=== PATIENT | male | born 1970 ===

== ENCOUNTER 2016-12-12 23:47 | Inpatient (IN) | payer MEDICAID ==
--- NOTE | 2016-12-13 02:08 | C.PDOC ---
History Of Present Illness 46 year old male with prior Hx of depression presents to the ED with suicidal ideation. Patient states this occurred about 5 days ago, since then he felt like being isolated and in the dark, has thought many time about suicide. Had tried before with taking pills, no clear explanation has to what is causing this depression. Patient has a Hx of diabetes as well and is not taking his medication due to his depression. He states no other medical issue at this time. Time Seen by Provider: 12/13/16 02:06 Chief Complaint (Nursing): Psychiatric Evaluation History Per: Patient History/Exam Limitations: no limitations Onset/Duration Of Symptoms: Days Current Symptoms Are (Timing): Still Present Suicide/Self Injury Attempted (Context): Ingestion Modifying Factor(s): None Associated Symptoms: Depression, Suicidal Thoughts, Suicidal Plan Involuntary Hold By: None Recent travel outside of the [place]: No Additional History Per: Patient Past Medical History Reviewed: Historical Data, Nursing Documentation, Vital Signs Vital Signs: Last Vital Signs Temp 97.4 F L 12/13/16 05:45 Pulse 84 12/13/16 07:16 Resp 20 12/13/16 07:16 BP 110/72 12/13/16 07:16 Pulse Ox 97 12/13/16 07:16 - Medical History PMH: No Chronic Diseases Surgical History: No Surg Hx Family History: States: Unknown Family Hx - Social History Hx Alcohol Use: No Hx Substance Use: No - Immunization History Hx Tetanus Toxoid Vaccination: No Hx Influenza Vaccination: Yes (2017) Hx Pneumococcal Vaccination: No Review Of Systems Constitutional: Negative for: Fever, Chills Cardiovascular: Negative for: Chest Pain Respiratory: Negative for: Cough Gastrointestinal: Negative for: Nausea, Vomiting, Abdominal Pain Neurological: Negative for: Weakness, Numbness Physical Exam - Physical Exam Appears: Non-toxic, Other (Depressed) Skin: Normal Color, Warm, Dry Head: Atraumatic, Normacephalic Oral Mucosa: Moist Neck: Normal, Supple Chest: Symmetrical Cardiovascular: Rhythm Regular, No Friction Rub, No Murmur Respiratory: Normal Breath Sounds, No Accessory Muscle Use, No Rales, No Rhonchi , No Wheezing Gastrointestinal/Abdominal: Soft, No Tenderness, No Guarding, No Rebound Extremity: Normal ROM, No Pedal Edema, No Calf Tenderness, No Deformity Pulses: Left Dorsalis Pedis: Normal, Right Dorsalis Pedis: Normal Neurological/Psych: Oriented x3, Normal Speech, Normal Cognition ED Course And Treatment - Laboratory Results Result Diagrams: 12/13/16 02:02 12/13/16 02:02 O2 Sat by Pulse Oximetry: 98 (On RA) Pulse Ox Interpretation: Normal Medical Decision Making Medical Decision Making: Impression : 46 y/o male presents with suicidal ideation. Patient was medically cleared and for crisis to evaluate. Disposition - Disposition Disposition: HOSPITALIZED Disposition Time: 05:20 Condition: FAIR - Clinical Impression Clinical Impression: Depression, Suicidal ideations - Scribe Statement The provider has reviewed the documentation as recorded by the Scribe Jeb Vale All medical record entries made by the Scribe were at my direction and personally dictated by me. I have reviewed the chart and agree that the record accurately reflects my personal performance of the history, physical exam, medical decision making, and the department course for this patient. I have also personally directed, reviewed, and agree with the discharge instructions and disposition.
[2016-12-13 02:12] LABS: CHLORIDE 97 mmol/L (98-107)
[2016-12-13 02:13] LABS: POTASSIUM 3.6 mmol/L (3.6-5.2); SODIUM 138 mmol/L (132-148)
[2016-12-13 02:15] LABS: GFR AFRICAN-AMERICAN > 60
[2016-12-13 02:16] LABS: ALB/GLOB RATIO 1.1 (1.0-2.1); ALKALINE PHOSPHATASE 66 U/L (38-126); ALT/SGPT 71 U/L (21-72); AST/SGOT 31 U/L (17-59); BLOOD UREA NITROGEN 12 mg/dL (9-20); CALCIUM 9.5 mg/dl (8.6-10.4); CARBON DIOXIDE 26 mmol/L (22-30); GLUCOSE,RANDOM 107 mg/dL (75-110); TOTAL PROTEIN 9.6 g/dL (6.3-8.3)
[2016-12-13 02:19] LABS: BASO % 0.5 % (0.0-2.0); EOS # 0.1 K/uL (0.0-0.7); EOS % 1.1 % (0.0-4.0); HEMATOCRIT 45.4 % (35.0-51.0); LYMPH # 3.3 K/uL (1.0-4.3); LYMPH % 35.8 % (20.0-40.0); MEAN CELL VOLUME 88.3 fL (80.0-94.0); MEAN CORPUSCULAR HEMOGLOBIN 31.2 pg (27.0-31.0); MEAN CORPUSCULAR HGB CONC 35.3 g/dL (33.0-37.0); MEAN PLATELET VOLUME 8.9 fL (7.2-11.7); MONO # 0.7 K/uL (0.0-0.8); MONO % 7.6 % (0.0-10.0); NRBC % 0.1 % (0.0-2.0); RED CELL DISTRIBUTION WIDTH 12.7 % (11.5-14.5); WHITE BLOOD COUNT 9.2 K/uL (4.8-10.8)
[2016-12-13 03:07] LABS: RBC URINE 2 /hpf (0-3); URINE BACTERIA RARE (<OCC); URINE BILIRUBIN NEGATIVE (NEGATIVE); URINE BLOOD NEGATIVE (NEGATIVE); URINE COLOR Yellow (YELLOW); URINE GLUCOSE (UA) NORMAL (Normal); URINE KETONE NEGATIVE (NEGATIVE); URINE LEUKOCYTE ESTERASE NEG Leu/uL (Negative); URINE PROTEIN 1+ mg/dL (NEGATIVE); WBC URINE 3 /hpf (0-5)
--- NOTE | 2016-12-13 07:54 | PCM.BM ---
<Becky Adam - Last Filed: 12/13/16 07:51> Treatment Plan Problems - Problems identified on initial assessmt dep Date Initiated: 12/13/16 Time Initiated: 07:52 Assessment reference: NA Status: Active Treatment assets and liabiliti Patient Assests: cooperative, insightful, ADL independent, good support system, good past tx response, cognitively intact Patient Liabilities: live alone - Milieu Protocol Maintain good personal hygiene: daily Encourage regular showers Conduct patient checks and document Observation sheet: Q15 minutes Maintain personal safety: every shift Educate patient to report safety concerns to staff, every shift Monitor environment for contraband/sharps Medication safety: Monitor for expected outcome, potential side effects: every shift, Assess barriers to learning: every shift, Assess readiness for medication education: every shift <Elsa Santo - Last Filed: 12/15/16 13:41> Family Contact Family involvement: Famliy/SO not involved - Goals for Treatment Patient goals for treatment: "I want to go to outpatient program." Discharge/Continuing Care - Education Needs Education Needs: Patient Medication, Patient Coping Skills - Discharge Discharge Criteria: Tolerates medication w/o severe side effects, Reduction of target symptoms Discharge to:: Home - Treatment Team Participation Discussed with Family/SO: No Was Patient/Family/SO present at Treatment Team Meeting: Yes <Gonzalez Vasquez - Last Filed: 12/15/16 17:46> - Diagnosis (1) Major depressive disorder, recurrent severe without psychotic features Status: Acute Interventions: Assess/adjust medications daily and/or as needed SEE patient on him individual basis 7x/week to assess status of hallucinations. Discuss risks, benefits, side effects and alternatives of medications. 12/15/16 17:46
--- NOTE | 2016-12-13 19:37 | PCM.PSYCH ---
Initial Psychiatric Evaluation - Initial Psychiatric Evaluation Type of Admission: Voluntary Legal Status: Capacity Chief Complaint (in patient's own words): I'm depressed and I have AVH Patient's Reaction to Hospitalization: feeling safe History of Present Illness and Precipitating Events: Time spend: 35 minutes This is a 46 year old male with the history of depression was presented and admitted for worsening of depression with psychotic features. He reported that he had depressed mood with anhedonia, insomnia, decrease in appetite, feeling worthless, helpless, hopeless and suicidal ideation to end his life. He stated that he had no intent or plan and no access to guns. He stated that he has had good social support from his friends. He denied any past suicide attempt. He reported that his functioning level had been decrease and unable to do his job. He reported that he is hearing male voices telling him to end his life and his life is worthless, but able to distract himself by listening to music and talking to himself. He denied Manic, anxiety symptoms. He denied paranoid delusions Current Medications: Active Medications Generic Name Dose Route Start Last Admin Trade Name Freq PRN Reason Stop Dose Admin Aripiprazole 5 mg 12/13/16 10:00 12/13/16 10:00 Abilify PO 5 mg DAILY HECTOR Administration Benztropine Mesylate 2 mg 12/13/16 05:12 Cogentin PO Q6 PRN Extra Pyramidal Symptoms Famotidine 20 mg 12/13/16 10:00 12/13/16 17:17 Pepcid PO 20 mg BID HECTOR Administration Glimepiride 1 mg 12/13/16 11:30 12/13/16 11:49 Amaryl PO 1 mg ACB HECTOR Administration Haloperidol 5 mg 12/13/16 05:12 Haldol PO Q8 PRN Moderate Agitation Haloperidol Lactate 5 mg 12/13/16 05:12 Haldol IM Q8 PRN Moderate Agitation Hydroxyzine HCl 25 mg 12/13/16 05:12 Atarax PO Q6 PRN Anxiety Ibuprofen 400 mg 12/13/16 05:12 Motrin Tab PO Q6 PRN Pain, moderate (4-7) Sitagliptin Phosphate 100 mg 12/13/16 11:30 12/13/16 11:49 Januvia PO 100 mg DAILY HECTOR Administration Past Psychiatric History - Past Psychiatric History Previous Treatment History: Inpatient Prior Psychiatric Treatment: multiple admission in [facility] during his teen age. He is not complian with tx At what hospital: at [facility] not compliant History of Abuse: denied History of ETOH/Drug Use: denied including smoking cigarettes as well as illicit drugs History of Family Illness: denied Pertinent Medical Hx (Current Medical&Sleep Prob, Allergies): Allergies Allergy/AdvReac Type Severity Reaction Status Date / Time No Known Allergies Allergy Verified 12/13/16 00:33 Glimepiride [Amaryl] 1 mg PO BID 12/13/16 Januvia mg PO DAILY 12/13/16 Review of Systems - Review of Systems Systems not reviewed;Unavailable: Acuity of Condition All systems: reviewed and no additional remarkable complaints except (Psych please see HPI) Mental Status Examination - Personal Presentation Personal Presentation: Looks older than stated age, Dressed appropriate to season - Affect Affect: Constricted, Depressed - Motor Activity Motor Activity: Calm, Psychomotor Retardation - Reliability in Providing Information Reliability in Providing Information: Fair - Speech Speech: Organized, Coherent - Mood Mood: Depressed, Anxious - Formal Thought Process Formal Thought Process: Delusions, Paranoia - Hallucinations/Delusions Hallucinations: Visual, Auditory - Obsessions/Compulsions Obsessions: No Compulsions: No - Cognitive Functions Orientation: Person, Place, Situation, Time Sensorium: Alert Attention/Concentration: Attentive Abstract Thinking: [place] Judgement: Intact, as evidence by: Good judgement, Intact, as evidence by: Insight regarding need for hospitalization Memory: Recent intact, as evidence by: Ability to recall events of the day - Risk Risk: Suicidal - Strength & Assets Inventory Strength & Assets Inventory: Intelligence, Education, Employment status, Employment history, Life experience, Cooperative - Limitations Limitations: Other DSM 5 DX - DSM 5 DSM 5 Diagnosis: Major depressive disorder, recurrent, with psychotic features DM - Recommended/Plan of Treatment Treatment Recommendations and Plan of Treatment: Start Abilify 5 mg po daily for depression Individual and group therapy Recommend to f/u with [facility] after d/c Medication, benefits, compliance with treatment plan, risk side effects, alternative medication was discussed with the pt. He verbalized understanding and wants to start Abilify. Therapy in milieu Projected ELOS: 5-7 days Prognosis: good with meds - Smoking Cessation Smoking Cessation Initiated: Yes
--- NOTE | 2016-12-14 18:18 | PCM.PYCHPN ---
Psychiatric Progress Note - Psychiatric Progress Note Patient seen today, length of contact: 16 minutes Patient Chief Complaint: I'm feeling calm Problems Identified/Issues Discussed: Pt was seen and evaluated. Chart reviewed. Nurse input received. Pt stated that he is feeling Calm, still had AH, but noncammand type. He denied SI, HI, intent or plan. He is compliant with meds. He denied s/e. He needs to stay in the hospital to stabilized on meds Diagnostic Results: reviewed DSM 5 Symptoms Update: MDD, SEVERE, WITH PSYCHOTIC FEATURES Medication Change: Yes (increase Abilify 10 mg po daily) Medical Record Reviewed: Yes Mental Status Examination - Cognitive Function Orientation: Person, Place, Situation, Time Memory: Intact Attention: WNL Concentration: WNL Association: WNL Fund of Knowledge: [facility] Decription of patient's judgement and insights: fair/fair - Mood Mood: Depressed, Anxious - Affect Affect: Constricted, Depressed - Speech Speech: Appropriate - Formal Thought Process Formal Thought Process: Hallucinations (auditory, non command), Delusions, Paranoia - Suicidal Ideation Suicidal Ideation: No - Homicidal Ideation Homicidal Ideation: No Goal/Treatment Plan - Goal/Treatment Plan Need for Continued Stay: Remain at risks for inpatient hospitalization, Severe depression anxiety, Discharge may exacerbated symptoms Progress Toward Problem(s) and Goals/Treatment Plan: Increase Abilify 10 mg po daily for depression Individual and group therapy Recommend to f/u with [facility] after d/c with Dr. Toledo Medication, benefits, compliance with treatment plan, risk side effects, alternative medication was discussed with the pt. He verbalized understanding and wants to start Abilify. Therapy in milieu Estimated Date of D/C: 12/18/16
[2016-12-15 08:16] VITALS: O2SAT 99
--- NOTE | 2016-12-15 17:50 | PCM.PYCHPN ---
Psychiatric Progress Note - Psychiatric Progress Note Patient seen today, length of contact: 15 minutes Patient Chief Complaint: I'm feeling much better Problems Identified/Issues Discussed: Patient seen. Chart reviewed. Case discussed with the staff. Issues related to illness and treatment were discussed with the patient. Reported compliant with treatment with no adverse affects. Tolerating treatment very well. Reported feeling better with the treatment. Better mood, sleep and appetite. At the time of evaluation, patient was awake alert oriented 3, had no delusions , no auditory or visual hallucinations, no suicidal ideations or homicidal ideations. Medical Problems: Diabetes mellitus Obesity Diagnostic Results: Reviewed DSM 5 Symptoms Update: Improvement with treatment Medication Change: No Medical Record Reviewed: Yes Mental Status Examination - Cognitive Function Orientation: Person, Place, Situation, Time Memory: Intact Attention: WNL Concentration: WNL Association: WNL Fund of Knowledge: [facility] Decription of patient's judgement and insights: Fair - Mood Mood: Depressed (Much less than before) - Affect Affect: Other (Appropriate) - Speech Speech: Appropriate - Formal Thought Process Formal Thought Process: No Impairment Psychotic Thoughts and Behaviors: None - Suicidal Ideation Suicidal Ideation: No - Homicidal Ideation Homicidal Ideation: No Goal/Treatment Plan - Goal/Treatment Plan Need for Continued Stay: Remain at risks for inpatient hospitalization, Discharge may exacerbated symptoms, Severe functional impairment Progress Toward Problem(s) and Goals/Treatment Plan: Patient education Supportive therapy Continue treatment as before Patient wants to go to [facility] for follow-up care after discharge from the hospital. Estimated Date of D/C: 12/18/16 - Smoking Cessation Smoking Cessation Initiated: No
--- NOTE | 2016-12-16 14:46 | PCM.PYCHPN ---
Psychiatric Progress Note - Psychiatric Progress Note Patient seen today, length of contact: 15 minutes Patient Chief Complaint: I'm feeling much better. Problems Identified/Issues Discussed: Patient seen. Chart reviewed. Case discussed with the staff. Issues related to illness and treatment were discussed with the patient. Reported compliant with treatment with no adverse affects. Tolerating treatment very well. Reported feeling better with the treatment. Better mood, sleep and appetite. today patient reported that one of his uncle and his is tomorrow. Patient is requesting for discharge. We will discharge the patient tomorrow. Patient agreed. At the time of evaluation, patient was awake alert oriented 3, had no delusions , no auditory or visual hallucinations, no suicidal ideations or homicidal ideations. Medical Problems: Diabetes mellitus Obesity Diagnostic Results: Reviewed DSM 5 Symptoms Update: improving with treatment Medication Change: No Medical Record Reviewed: Yes Mental Status Examination - Cognitive Function Orientation: Person, Place, Situation, Time Memory: Intact Attention: WNL Concentration: WNL Association: WN Fund of Knowledge: [facility] Decription of patient's judgement and insights: Fair - Mood Mood: Neutral - Affect Affect: Other (Appropriate) - Speech Speech: Appropriate - Formal Thought Process Formal Thought Process: No Impairment Psychotic Thoughts and Behaviors: None - Suicidal Ideation Suicidal Ideation: No - Homicidal Ideation Homicidal Ideation: No Goal/Treatment Plan - Goal/Treatment Plan Need for Continued Stay: Remain at risks for inpatient hospitalization, Discharge may exacerbated symptoms, Severe functional impairment Progress Toward Problem(s) and Goals/Treatment Plan: Patient education Supportive therapy Continue treatment as before Patient wants to go to [facility] for follow-up care after discharge from the hospital. Estimated Date of D/C: 12/18/16 - Smoking Cessation Smoking Cessation Initiated: No
[2016-12-17 10:20] VITALS: BP 142/87; PULSE 66; RESP 17; TEMP 97.6
--- NOTE | 2016-12-17 13:42 | PCM.PYCHDC ---
Mental Status Examination - Mental Status Examination Orientation: Person, Place, Situation, Time Memory: Intact Mood: Neutral Affect: Other (Before.) Speech: Appropriate Attention: WNL Concentration: WNL Association: WNL Fund of Knowledge: WNL Formal Thought Process: No Impairment Description of patient's judgement and insight: Fair Psychotic Thoughts and Behaviors: None Suicidal Ideation: No Current Homicidal Ideation?: No Discharge Summary - Discharge Note Reason for Hospitalization: Major depressive disorder recurrent severe with psychotic features Laboratory Data: Abnormal Lab Results 12/17/16 09:25 POC Glucose (mg/dL) 171 H Consultations:: List each consultation separately and include: 1. Reason for request. 2. Findings. 3. Follow-up Summary of Hospital Course include:: 1. Description of specific treatment plan utilized for patients during their course of treatmen. 2. Summarize the time- course for resolution of acute symptoms and/or regressed behaviors. 3. Describe issues identified and worked on during hospitalization. 4. Describe medication utilized. 5. Describe medical problems identified and treated. 6. Reassessment of suicide risk Summary of Hospital Course: This is a 46 year old male with the history of depression was presented and admitted for worsening of depression with psychotic features. He reported that he had depressed mood with anhedonia, insomnia, decrease in appetite, feeling worthless, helpless, hopeless and suicidal ideation to end his life. He stated that he had no intent or plan and no access to guns. He stated that he has had good social support from his friends. He denied any past suicide attempt. He reported that his functioning level had been decrease and unable to do his job. He reported that he is hearing male voices telling him to end his life and his life is worthless, but able to distract himself by listening to music and talking to himself. He denied Manic, anxiety symptoms. He denied paranoid delusions During his stay in the hospital patient was treated with Peewee Pelaez, his diabetic medications and other when necessary medications. With above treatment and attending groups and other activities on the unit, patient started feeling better. Today patient was stable and ready for discharge. At the time of evaluation and discharge, patient was awake alert oriented 3, had no delusions , no auditory or visual hallucinations, no suicidal ideations or homicidal ideations. Patient was discharged in a stable condition. - Diagnosis (1) Major depressive disorder, recurrent severe without psychotic features Status: Acute - Final Diagnosis (DSM 5) Condition upon Discharge: FAIR Disposition: HOME/ ROUTINE Follow-up Treatment Plan: Patient wants to go to [facility] for follow-up care after discharge from the hospital. Prescriptions/Medication Reconciliation: ARIPiprazole [Abilify] 10 mg PO DAILY #30 tab Benztropine [Cogentin] 2 mg PO HS PRN #30 tab PRN Reason: Extra Pyramidal Symptoms Famotidine [Pepcid] 20 mg PO BID #60 tab - Smoking Cessation Smoking Cessation Medication prescribed: No - Antipsychotic Medications Pt discharged on 2 or more routine antipsychotic medications: No
== END 2016-12-17 12:30 | disposition home or self-care (01) | DRG 430 ==
LOC: C.ER 23:47 → C.9E 12-13 05:19 → C.5E 12-13 06:09
PROVIDERS: ADMIT Psychiatry & Neurology Psychiatry; ATTEND Psychiatry & Neurology Psychiatry
PROC: GZHZZZZ Group Psychotherapy (ICD-10-PCS; principal; 2016-12-13)
DX: F33.3 Major depressive disorder, recurrent, severe with psychotic symptoms (principal); E11.9 Type 2 diabetes mellitus without complications; R45.851 Suicidal ideations; E66.9 Obesity, unspecified; G47.00 Insomnia, unspecified